=== PATIENT | male | born 1970 | race Two or more races ===

== ENCOUNTER 2023-02-18 18:31 | Inpatient (IN) | payer MEDICAID, OTHER ==
[~2023-02-18] VITALS: Ht 175.3 cm; Wt 70.3 kg
[2023-02-18] MEDS ORDERED: SODIUM CHLORIDE 0.9% 500 ML IV STA (18:36)
[2023-02-18] MEDS ORDERED: SODIUM CHLORIDE 0.9% 500 ML IV ONE (18:45)
[2023-02-18] MEDS ORDERED: cefTRIAXone 1GM/50ML D5W 50 ML IV ONE (19:00)
[2023-02-18 19:22] VITALS: PULSE 125; RESP 13; O2SAT 97
[2023-02-18 19:28] LABS: Hematocrit 29.2 % (41.0-53.0); Hemoglobin 9.3 g/dL (13.5-17.5); Mean Corpuscular Hemoglobin 27.6 pg (28.0-32.0); Mean Corpuscular Hgb Conc. 31.8 g/dL (32.0-36.0); Mean Corpuscular Volume 86.8 fL (80.0-100.0); Red Blood Cells 3.36 10^6/uL (4.5-5.90); White Blood Cell 17.5 10^3/uL (4.4-10.8)
[2023-02-18 19:41] LABS: Red Cell Distribution Width 20.2 % (11.8-14.3)
[2023-02-18 19:43] LABS: Basophils % (manual) 0 (0.0-2.0); Blast Cells 0; Eosinophils % (manual) 0 (0-7); Metamyelocytes % 0; Myelocytes % 0; Promyelocytes % 0; Reactive Lymphocytes 0
[2023-02-18] MEDS ORDERED: VANCOMYCIN 1GM/250ML 250 ML IV ONE (19:45)
[2023-02-18 19:48] LABS: Alanine Aminotransferase 76 U/L (7-40); Albumin 2.6 g/dL (3.2-4.8); Alkaline Phosphatase 298 U/L (46-116); Anion Gap 6 (5-15); Aspartate Aminotransferase 76 U/L (13-40); BUN/Creatinine Ratio 17.3 (10.0-20.0); Blood Urea Nitrogen 14 mg/dL (9-23); Calcium 8.1 mg/dL (8.7-10.4); Carbon Dioxide 23 mmol/L (20-30); Chloride 95 mmol/L (98-107); Potassium 5.4 mmol/L (3.5-5.1); Sodium 124 mmol/L (136-145); Total Protein 7.4 g/dL (5.7-8.2)
[2023-02-18 19:58] LABS: Glucose 476 mg/dL (74-106)
[2023-02-18 20:15] LABS: Urine Bacteria FEW /hpf (None Seen); Urine Blood 1+ /uL (Negative); Urine Clarity CLOUDY (Clear); Urine Color Yellow (Yellow); Urine Mucus FEW (None Seen); Urine Protein, UAD 2+ (Negative); Urine Specific Gravity 1.018 (1.001-1.035); Urine WBC 44 /hpf (0 - 3); Urine pH 7.5 (5.0-8.0)
[2023-02-18 20:24] LABS: Anisocytosis Slight; Band Neutrophils % (manual) 26; Lymphocytes % (manual) 7 (10.0-50.0); Monocytes % (manual) 6 (0-12); Platelet Estimate Adequate
[2023-02-18] MEDS ORDERED: SODIUM ZIRCONIUM CYCL 10 GM PAK PO ONE (21:30)
[2023-02-18] MEDS ORDERED: NITROGLYCERIN 0.4 MG SL TAB SL PRN (21:30)
[2023-02-18] MEDS ORDERED: ONDANSETRON HCL 4 MG/2 ML VIAL IV PRN (21:30)
[2023-02-18] MEDS ORDERED: MORPHINE SULFATE INJ 2 MG/ml SYRG IV PRN ×2 (21:30)
[2023-02-18] MEDS ORDERED: HYDROcodone-ACET 5/325MG TAB PO PRN (21:30)
[2023-02-18] MEDS ORDERED: ACETAMINOPHEN 325 MG TAB PO PRN (21:30)
[2023-02-18] MEDS ORDERED: ENO100SY SC (21:32)
[2023-02-18] MEDS ORDERED: TPN PER PHARMACY 0 ML IV SCH (22:15)
[2023-02-18] MEDS: SODIUM CHLORIDE 0.9% 1,000 ML IV SCH (22:27)
[2023-02-19] VITALS (8 sets, daily range): BP systolic 101–116; BP diastolic 59–71; PULSE 79–132; RESP 14–18; TEMP 97.9–98.9; O2SAT 95–98
[2023-02-19 06:07] LABS: Basophils # (auto) 0 10 ^3/uL (0-0.2); Basophils % (auto) 0.2 % (0.0-2.0); Eosinophils # (auto) 0 10 ^3/uL (0-0.8); Eosinophils % (auto) 0.4 % (0.0-7.0); Hematocrit 29.3 % (41.0-53.0); Hemoglobin 9.8 g/dL (13.5-17.5); Lymphocytes % (auto) 9.6 % (10.0-50.0); Mean Corpuscular Hemoglobin 28.3 pg (28.0-32.0); Mean Corpuscular Hgb Conc. 33.3 g/dL (32.0-36.0); Monocytes # (auto) 0.8 10 ^3/uL (0-1.3); Monocytes % (auto) 7.7 % (0.0-12.0); Neutrophils # (auto) 8.2 10 ^3/uL (1.6-8.6); Neutrophils % (auto) 82.1 % (37.0-80.0); Nucleated Red Blood Cells % 0.1 %; Red Blood Cells 3.45 10^6/uL (4.5-5.90)
[2023-02-19 06:09] LABS: Red Cell Distribution Width 20.3 % (11.8-14.3)
[2023-02-19 06:26] LABS: Alanine Aminotransferase 68 U/L (7-40); Albumin 2.8 g/dL (3.2-4.8); Alkaline Phosphatase 231 U/L (46-116); Anion Gap 3 (5-15); Aspartate Aminotransferase 78 U/L (13-40); BUN/Creatinine Ratio 18.3 (10.0-20.0); Blood Urea Nitrogen 11 mg/dL (9-23); Calcium 8.5 mg/dL (8.5-10.1); Carbon Dioxide 27 mmol/L (20-30); Chloride 99 mmol/L (98-107); Phosphorus 4.4 mg/dL (2.4-5.1); Potassium 4.3 mmol/L (3.5-5.1); Total Protein 7.9 g/dL (5.7-8.2); Triglycerides 77 mg/dL (< 150)
[2023-02-19 06:38] LABS: Glucose 106 mg/dL (74-106); Sodium 129 mmol/L (136-145)
[2023-02-19 07:14] LABS: Magnesium 1.9 mg/dL (1.6-2.6)
[2023-02-19] MEDS: cefTRIAXone 1GM/50ML D5W 50 ML IV SCH (09:11)
[2023-02-19] MEDS: SODIUM CHLORIDE 0.9% 1,000 ML IV SCH ×2 (09:11→20:27)
[2023-02-19] MEDS ORDERED: HYDROMORPHONE IV SCH ×7 (11:00→14:00)
[2023-02-19] MEDS ORDERED: SODIUM CHL 0.9% IV SCH ×7 (11:00→14:00)
[2023-02-19] MEDS ORDERED: TPN PER PHARMACY IV NR ×9 (20:00)
[2023-02-19] MEDS: ENOXAPARIN SOD 40 MG/0.4 ML SYRINGE SC SCH (21:46)
[2023-02-19] MEDS: ACCU-CHEK COMFORT CURVE STRIP VI SCH (23:56)
[2023-02-19] MEDS: InsuLIN REG 1unit/0.01ml Soln (100units/ml) SC SCH (23:56)
[2023-02-20] VITALS (7 sets, daily range): BP systolic 99–114; BP diastolic 58–67; PULSE 73–116; RESP 15–18; TEMP 97.9–98.1; O2SAT 95–99
[2023-02-20] MEDS ORDERED: DEXTROSE (50%) 50ML SYRG IV SCH
[2023-02-20] MEDS: InsuLIN REG 1unit/0.01ml Soln (100units/ml) SC SCH ×3 (06:00→17:43)
[2023-02-20] MEDS: ACCU-CHEK COMFORT CURVE STRIP VI SCH ×3 (06:24→17:43)
[2023-02-20] MEDS: SODIUM CHLORIDE 0.9% 1,000 ML IV SCH (06:24)
[2023-02-20 06:43] LABS: Basophils # (auto) 0 10 ^3/uL (0-0.2); Basophils % (auto) 0.1 % (0.0-2.0); Eosinophils # (auto) 0 10 ^3/uL (0-0.8); Eosinophils % (auto) 0.4 % (0.0-7.0); Hematocrit 27.6 % (41.0-53.0); Hemoglobin 9.1 g/dL (13.5-17.5); Lymphocytes # (auto) 1.6 10 ^3/uL (0.4-5.4); Lymphocytes % (auto) 13.1 % (10.0-50.0); Mean Corpuscular Hgb Conc. 32.8 g/dL (32.0-36.0); Mean Corpuscular Volume 85.4 fL (80.0-100.0); Monocytes # (auto) 1.2 10 ^3/uL (0-1.3); Monocytes % (auto) 9.8 % (0.0-12.0); Neutrophils # (auto) 9.6 10 ^3/uL (1.6-8.6); Neutrophils % (auto) 76.6 % (37.0-80.0); Red Blood Cells 3.23 10^6/uL (4.5-5.90); White Blood Cell 12.6 10^3/uL (4.4-10.8)
[2023-02-20 06:59] LABS: Chloride 97 mmol/L (98-107); Potassium 4.1 mmol/L (3.5-5.1); Sodium 125 mmol/L (136-145)
[2023-02-20 07:05] LABS: BUN/Creatinine Ratio 11.9 (10.0-20.0); Blood Urea Nitrogen 7 mg/dL (9-23); Glucose 114 mg/dL (74-106)
[2023-02-20 07:06] LABS: Magnesium 1.9 mg/dL (1.6-2.6)
[2023-02-20 07:07] LABS: Phosphorus 2.8 mg/dL (2.4-5.1)
[2023-02-20 07:25] LABS: Anion Gap 3 (5-15); Carbon Dioxide 25 mmol/L (20-30)
[2023-02-20] MEDS: ENOXAPARIN SOD 40 MG/0.4 ML SYRINGE SC SCH (08:55)
[2023-02-20] MEDS: cefTRIAXone 1GM/50ML D5W 50 ML IV SCH (09:17)
[2023-02-20] MEDS ORDERED: ENOXAPARIN SOD 40 MG/0.4 ML SYRINGE SC SCH (10:00)
[2023-02-20] MEDS ORDERED: VANCOMYCIN PER PHARMACY 0 MG IV SCH (10:30)
[2023-02-20] MEDS ORDERED: VANCOMYCIN 1GM/250ML 250 ML IV ONE (10:45)
[2023-02-20] MEDS ORDERED: ENOXAPARIN SOD 30 MG/0.3 ML SYRINGE SC ONE (10:45)
[2023-02-20 10:46] LABS: Albumin 2.5 g/dL (3.2-4.8); Bilirubin, Direct 0.6 mg/dL (<0.3); Bilirubin, Total 0.9 mg/dL (0.2-1.0); Total Protein 6.7 g/dL (5.7-8.2)
[2023-02-20] MEDS ORDERED: TPN PER PHARMACY IV NR ×10 (20:00)
[2023-02-20] MEDS: VANCOMYCIN 1GM/250ML 250 ML IV SCH (20:38)
[2023-02-20] MEDS: ENOXAPARIN SOD 80 MG/0.8ML SYRINGE SC SCH (21:05)
[2023-02-21] MEDS: ACCU-CHEK COMFORT CURVE STRIP VI SCH ×3 (00:16→11:42)
[2023-02-21] MEDS: VANCOMYCIN 1GM/250ML 250 ML IV SCH ×2 (04:53→16:00)
[2023-02-21] MEDS: InsuLIN REG 1unit/0.01ml Soln (100units/ml) SC SCH ×3 (04:58→11:42)
[2023-02-21 05:00] VITALS: BP 97/59; PULSE 65; RESP 16; TEMP 98; O2SAT 98
[2023-02-21 05:56] LABS: Alanine Aminotransferase 41 U/L (7-40); Albumin 2.6 g/dL (3.2-4.8); Alkaline Phosphatase 200 U/L (46-116); Anion Gap 5 (5-15); Aspartate Aminotransferase 62 U/L (13-40); Blood Urea Nitrogen 8 mg/dL (9-23); Calcium 7.7 mg/dL (8.7-10.4); Carbon Dioxide 22 mmol/L (20-30); Chloride 96 mmol/L (98-107); Glucose 103 mg/dL (74-106); Magnesium 1.7 mg/dL (1.6-2.6); Potassium 3.5 mmol/L (3.5-5.1); Sodium 123 mmol/L (136-145)
[2023-02-21 05:57] LABS: Basophils # (auto) 0 10 ^3/uL (0-0.2); Eosinophils # (auto) 0 10 ^3/uL (0-0.8); Hemoglobin 8.2 g/dL (13.5-17.5); Neutrophils % (auto) 80.8 % (37.0-80.0); Phosphorus 2.6 mg/dL (2.4-5.1); Total Protein 7.1 g/dL (5.7-8.2)
[2023-02-21 06:00] LABS: Eosinophils % (auto) 0.4 % (0.0-7.0); Hematocrit 24.8 % (41.0-53.0); Lymphocytes # (auto) 1.3 10 ^3/uL (0.4-5.4); Lymphocytes % (auto) 10.4 % (10.0-50.0); Mean Corpuscular Hemoglobin 28.2 pg (28.0-32.0); Mean Corpuscular Volume 85.4 fL (80.0-100.0); Monocytes # (auto) 1.1 10 ^3/uL (0-1.3); Monocytes % (auto) 8.4 % (0.0-12.0); Neutrophils # (auto) 10.5 10 ^3/uL (1.6-8.6); Nucleated Red Blood Cells % 0.1 %; Red Cell Distribution Width 19.8 % (11.8-14.3)
[2023-02-21 08:00] VITALS: BP 112/65; PULSE 102; PULSE 76; PULSE 99; RESP 14; RESP 17; TEMP 99; O2SAT 94; O2SAT 97
[2023-02-21] MEDS ORDERED: LINE1TAB10 PO (09:37)
[2023-02-21 12:00] VITALS: BP 105/62; PULSE 75; RESP 16; TEMP 98.8; O2SAT 98
[2023-02-21] MEDS: cefTRIAXone 1GM/50ML D5W 50 ML IV SCH (12:50)
[2023-02-21] MEDS: ENOXAPARIN SOD 80 MG/0.8ML SYRINGE SC SCH (12:50)
[2023-02-21 16:00] VITALS: BP 106/64; PULSE 71; RESP 14; TEMP 98.3; O2SAT 98
[2023-02-21] MEDS ORDERED: TPN PER PHARMACY IV NR ×12 (20:00)
== END 2023-02-21 18:30 | disposition home health service (06) | DRG 720 ==
LOC: EDBD 18:31 → ER 18:31 → TELE 21:26 → TELE-WESTW 02-19 04:15
PROVIDERS: ADMIT Internal Medicine Pulmonary Disease; ATTEND Student in an Organized Health Care Education/Training Program
PROC: 0DH63UZ Insertion of Feeding Device into Stomach, Percutaneous Approach (ICD-10-PCS; principal; 2023-02-21)
PROC: 3E0G76Z Introduction of Nutritional Substance into Upper GI, Via Natural or Artificial Opening (ICD-10-PCS; 2023-02-21)
DX: A41.2 Sepsis due to unspecified staphylococcus (principal); E43 Unspecified severe protein-calorie malnutrition; I82.411 Acute embolism and thrombosis of right femoral vein; C20 Malignant neoplasm of rectum; E87.1 Hypo-osmolality and hyponatremia; N39.0 Urinary tract infection, site not specified; Z68.22 Body mass index [BMI] 22.0-22.9, adult; Z85.038 Personal history of other malignant neoplasm of large intestine; Z92.21 Personal history of antineoplastic chemotherapy; Z93.3 Colostomy status; Z93.6 Other artificial openings of urinary tract status
CPT/HCPCS: 36415; 71045; 80048; 80053; 80076; 80202; 81001; 82040; 82962; 83036; 83605; 83735; 84100; 84478; 85007; 85025; 85027; 87040; 87077; 87086; 87186; 93005; 93971; G0378; J0696; J7131

== ENCOUNTER 2023-03-11 17:04 | Inpatient (IN) | payer MEDICAID ==
[~2023-03-11] VITALS: Ht 182.9 cm; Wt 61.1 kg
[~2023-03-11 17:04] MED LIST: ENO100SY SC; LINE1TAB10 PO
[2023-03-11 17:16] VITALS: PULSE 101; RESP 16; O2SAT 96
[2023-03-11 18:05] LABS: Eosinophils # (auto) 0 10 ^3/uL (0-0.8); Eosinophils % (auto) 0.1 % (0.0-7.0); Neutrophils % (auto) 91.4 % (37.0-80.0)
[2023-03-11 18:07] LABS: Basophils # (auto) 0.2 10 ^3/uL (0-0.2); Lymphocytes # (auto) 0.5 10 ^3/uL (0.4-5.4); Lymphocytes % (auto) 3.1 % (10.0-50.0); Mean Corpuscular Hemoglobin 28.9 pg (28.0-32.0); Mean Corpuscular Volume 87.5 fL (80.0-100.0); Monocytes # (auto) 0.7 10 ^3/uL (0-1.3); Monocytes % (auto) 4.4 % (0.0-12.0); Neutrophils # (auto) 15.1 10 ^3/uL (1.6-8.6); Red Cell Distribution Width 19.2 % (11.8-14.3); White Blood Cell 16.5 10^3/uL (4.4-10.8)
[2023-03-11 18:20] LABS: Alanine Aminotransferase 26 U/L (7-40); Albumin 2.6 g/dL (3.2-4.8); Alkaline Phosphatase 261 U/L (46-116); Anion Gap 8 (5-15); Aspartate Aminotransferase 51 U/L (13-40); BUN/Creatinine Ratio 21.4 (10.0-20.0); Blood Urea Nitrogen 9 mg/dL (9-23); Calcium 7.7 mg/dL (8.7-10.4); Carbon Dioxide 21 mmol/L (20-30); Chloride 100 mmol/L (98-107); Glucose 105 mg/dL (74-106); Potassium 3.7 mmol/L (3.5-5.1); Sodium 129 mmol/L (136-145)
[2023-03-11 18:21] LABS: Bilirubin, Total 0.5 mg/dL (0.2-1.0); Lactic Acid w/Reflex 2.2 mmol/L (0.4-2.0); Total Protein 6.6 g/dL (5.7-8.2)
[2023-03-11 18:26] LABS: Hemoglobin 6.9 g/dL (13.5-17.5)
[2023-03-11] MEDS ORDERED: SODIUM CHLORIDE 0.9% 1,000 ML IV ONE (18:45)
[2023-03-11] MEDS ORDERED: SODIUM CHLORIDE 0.9% 1,350 ML IV ONE (19:00)
[2023-03-11 19:30] VITALS: PULSE 92; RESP 12; O2SAT 96
[2023-03-11] MEDS ORDERED: VANCOMYCIN PER PHARMACY 0 MG IV SCH ×2 (19:45→20:30)
[2023-03-11] MEDS ORDERED: VANCOMYCIN 1GM/250ML 250 ML IV SCH (20:00)
[2023-03-11 20:07] LABS: Basophils # (auto) 0.1 10 ^3/uL (0-0.2); Eosinophils # (auto) 0 10 ^3/uL (0-0.8); Eosinophils % (auto) 0.1 % (0.0-7.0); Hemoglobin 7.2 g/dL (13.5-17.5); Lymphocytes # (auto) 0.7 10 ^3/uL (0.4-5.4); Monocytes # (auto) 0.8 10 ^3/uL (0-1.3)
[2023-03-11 20:08] LABS: Basophils % (auto) 0.6 % (0.0-2.0); Hematocrit 22.2 % (41.0-53.0); Lymphocytes % (auto) 3.9 % (10.0-50.0); Mean Corpuscular Hgb Conc. 32.3 g/dL (32.0-36.0); Mean Corpuscular Volume 86.9 fL (80.0-100.0); Monocytes % (auto) 4.7 % (0.0-12.0); Neutrophils # (auto) 15.4 10 ^3/uL (1.6-8.6); Neutrophils % (auto) 90.7 % (37.0-80.0); Red Blood Cells 2.56 10^6/uL (4.5-5.90); Red Cell Distribution Width 18.6 % (11.8-14.3); White Blood Cell 16.9 10^3/uL (4.4-10.8)
[2023-03-11 20:18] LABS: Alanine Aminotransferase 37 U/L (7-40); Albumin 2.6 g/dL (3.2-4.8); Alkaline Phosphatase 253 U/L (46-116); Anion Gap 6 (5-15); Aspartate Aminotransferase 64 U/L (13-40); BUN/Creatinine Ratio 26.2 (10.0-20.0); Bilirubin, Total 0.5 mg/dL (0.2-1.0); Blood Urea Nitrogen 11 mg/dL (9-23); Calcium 7.8 mg/dL (8.5-10.1); Carbon Dioxide 22 mmol/L (20-30); Chloride 101 mmol/L (98-107); Glucose 112 mg/dL (74-106); Sodium 129 mmol/L (136-145); Total Protein 6.3 g/dL (5.7-8.2)
[2023-03-11] MEDS ORDERED: MORPHINE SULFATE INJ 2 MG/ml SYRG IV PRN (20:30)
[2023-03-11] MEDS ORDERED: ACETAMINOPHEN 325 MG TAB PO PRN (20:30)
[2023-03-11] MEDS ORDERED: TEMAZEPAM 15 MG CAP PO PRN (20:30)
[2023-03-11] MEDS ORDERED: ONDANSETRON HCL 4 MG/2 ML VIAL IV PRN (20:30)
[2023-03-11] MEDS ORDERED: NITROGLYCERIN 0.4 MG SL TAB SL PRN (20:30)
[2023-03-11 20:37] LABS: INR 1.17 (0.9-1.15); Partial Thromboplastin Time 32.3 SEC (24.5-34.5); Prothrombin Time 12.2 sec (9.3-11.8)
[2023-03-11] MEDS ORDERED: SODIUM CHLORIDE 0.9% 1,000 ML IV SCH (21:00)
[2023-03-11] MEDS ORDERED: PIPERACILLIN-TAZO 4.5GM 100 ML IV SCH (22:00)
[2023-03-11] MEDS: PIPERACILLIN-TAZOB 3.375GM 100 ML IV SCH (23:21)
[2023-03-12] VITALS (76 sets, daily range): BP systolic 81–103; BP diastolic 42–66; PULSE 74–106; RESP 8–20; TEMP 97.6–100.1; O2SAT 93–100
[2023-03-12] MEDS: PIPERACILLIN-TAZOB 3.375GM 100 ML IV SCH (06:18)
[2023-03-12] MEDS: VANCOMYCIN 1GM/250ML 250 ML IV SCH ×2 (08:48→20:20)
[2023-03-12 08:52] LABS: Basophils # (auto) 0.1 10 ^3/uL (0-0.2); Eosinophils # (auto) 0 10 ^3/uL (0-0.8); Eosinophils % (auto) 0.1 % (0.0-7.0); Hemoglobin 8.3 g/dL (13.5-17.5); Mean Corpuscular Volume 87.1 fL (80.0-100.0); Neutrophils # (auto) 13.4 10 ^3/uL (1.6-8.6)
[2023-03-12 08:53] LABS: Basophils % (auto) 0.4 % (0.0-2.0); Hematocrit 25.3 % (41.0-53.0); Lymphocytes # (auto) 0.6 10 ^3/uL (0.4-5.4); Mean Corpuscular Hemoglobin 28.6 pg (28.0-32.0); Mean Corpuscular Hgb Conc. 32.8 g/dL (32.0-36.0); Monocytes # (auto) 0.6 10 ^3/uL (0-1.3); Monocytes % (auto) 4.2 % (0.0-12.0); Neutrophils % (auto) 91.3 % (37.0-80.0); Red Cell Distribution Width 18.3 % (11.8-14.3); White Blood Cell 14.7 10^3/uL (4.4-10.8)
[2023-03-12 09:13] LABS: Alanine Aminotransferase 27 U/L (7-40); Albumin 2.7 g/dL (3.2-4.8); Alkaline Phosphatase 212 U/L (46-116); Anion Gap 5 (5-15); Aspartate Aminotransferase 53 U/L (13-40); Blood Urea Nitrogen 6 mg/dL (9-23); Calcium 7.9 mg/dL (8.5-10.1); Carbon Dioxide 23 mmol/L (20-30); Chloride 100 mmol/L (98-107); Glucose 92 mg/dL (74-106); Potassium 3.6 mmol/L (3.5-5.1); Sodium 128 mmol/L (136-145)
[2023-03-12 09:14] LABS: Bilirubin, Total 0.8 mg/dL (0.2-1.0); Total Protein 6.8 g/dL (5.7-8.2)
[2023-03-12] MEDS ORDERED: ENOXAPARIN SOD 40 MG/0.4 ML SYRINGE SC SCH (10:00)
[2023-03-12] MEDS ORDERED: SODIUM CHLORIDE 0.9% 500 ML IV ONE (10:30)
[2023-03-12] MEDS ORDERED: CLINIMIX PER PHARMACY 0 ML IV SCH (11:00)
[2023-03-12] MEDS ORDERED: TPN PER PHARMACY 0 ML IV SCH (11:00)
[2023-03-12] MEDS: SODIUM CHLORIDE 0.9% 1,000 ML IV SCH ×2 (11:54→17:09)
[2023-03-12] MEDS ORDERED: AMINO ACID INFUSION IN D10W 1,000 ML IV NR (12:15)
[2023-03-12 12:16] LABS: Magnesium 1.7 mg/dL (1.6-2.6)
[2023-03-12 12:18] LABS: Phosphorus 3.2 mg/dL (2.4-5.1)
[2023-03-12 12:45] LABS: Urine Bacteria FEW /hpf (None Seen); Urine Blood TRACE /uL (Negative); Urine Clarity Clear (Clear); Urine Color Yellow (Yellow); Urine Mucus FEW (None Seen); Urine Protein, UAD TRACE (Negative); Urine Specific Gravity 1.013 (1.001-1.035); Urine WBC 1 /hpf (0 - 3); Urine pH 6.5 (5.0-8.0)
[2023-03-12] MEDS ORDERED: DEXTROSE (50%) 50ML SYRG IV SCH (12:45)
[2023-03-12 12:46] LABS: Urine Bacteria FEW /hpf (None Seen); Urine Blood TRACE /uL (Negative); Urine Clarity Clear (Clear); Urine Color Yellow (Yellow); Urine Mucus FEW (None Seen); Urine Protein, UAD TRACE (Negative); Urine Specific Gravity 1.013 (1.001-1.035); Urine WBC 1 /hpf (0 - 3); Urine pH 6.5 (5.0-8.0)
[2023-03-12] MEDS: MEROPENEM 1GM IVPB 100 ML IV SCH ×2 (13:59→23:08)
[2023-03-12] MEDS: ACCU-CHEK COMFORT CURVE STRIP VI SCH (17:24)
[2023-03-12] MEDS: InsuLIN REG 1unit/0.01ml Soln (100units/ml) SC SCH (17:25)
[2023-03-12] MEDS: MIDODRINE HCL 10 MG TAB PO SCH (17:35)
[2023-03-12] MEDS ORDERED: TPN PER PHARMACY IV NR ×11 (20:00)
[2023-03-12] MEDS: ENOXAPARIN SOD 100 MG/1 ML SYRINGE SC SCH (23:08)
[2023-03-13] VITALS: PULSE 86
[2023-03-13] MEDS: ACCU-CHEK COMFORT CURVE STRIP VI SCH ×4 (00:43→16:20)
[2023-03-13 04:00] VITALS: PULSE 77
[2023-03-13] MEDS: InsuLIN REG 1unit/0.01ml Soln (100units/ml) SC SCH ×4 (06:00→17:29)
[2023-03-13] MEDS: MEROPENEM 1GM IVPB 100 ML IV SCH ×3 (06:24→21:58)
[2023-03-13] MEDS: MIDODRINE HCL 10 MG TAB PO SCH ×3 (06:24→17:25)
[2023-03-13] MEDS: SODIUM CHLORIDE 0.9% 1,000 ML IV SCH ×3 (06:45→23:42)
[2023-03-13 07:34] LABS: Basophils # (auto) 0 10 ^3/uL (0-0.2); Basophils % (auto) 0.5 % (0.0-2.0); Eosinophils # (auto) 0.1 10 ^3/uL (0-0.8); Hematocrit 27.6 % (41.0-53.0); Lymphocytes % (auto) 12.1 % (10.0-50.0); Mean Corpuscular Hemoglobin 28.2 pg (28.0-32.0); Mean Corpuscular Hgb Conc. 32.5 g/dL (32.0-36.0); Mean Corpuscular Volume 86.6 fL (80.0-100.0); Monocytes # (auto) 0.8 10 ^3/uL (0-1.3); Monocytes % (auto) 9.4 % (0.0-12.0); Neutrophils # (auto) 6.5 10 ^3/uL (1.6-8.6); Nucleated Red Blood Cells % 0.1 %; Red Blood Cells 3.18 10^6/uL (4.5-5.90); Red Cell Distribution Width 17.8 % (11.8-14.3); White Blood Cell 8.5 10^3/uL (4.4-10.8)
[2023-03-13 07:49] LABS: Alanine Aminotransferase 28 U/L (7-40); Albumin 2.6 g/dL (3.2-4.8); Alkaline Phosphatase 185 U/L (46-116); Anion Gap 5 (5-15); Aspartate Aminotransferase 44 U/L (13-40); BUN/Creatinine Ratio 17.1 (10.0-20.0); Blood Urea Nitrogen 7 mg/dL (9-23); Carbon Dioxide 24 mmol/L (20-30); Chloride 103 mmol/L (98-107); Glucose 111 mg/dL (74-106); Potassium 3.7 mmol/L (3.5-5.1); Sodium 132 mmol/L (136-145); Triglycerides 177 mg/dL (< 150)
[2023-03-13 07:50] LABS: Bilirubin, Total 0.6 mg/dL (0.2-1.0); Phosphorus 3.6 mg/dL (2.4-5.1); Total Protein 6.4 g/dL (5.7-8.2)
[2023-03-13 08:00] VITALS: BP 97/57; PULSE 70; PULSE 73; PULSE 75; RESP 11; RESP 8; TEMP 97.7; O2SAT 96; O2SAT 97
[2023-03-13] MEDS: VANCOMYCIN 1GM/250ML 250 ML IV SCH ×2 (08:17→16:20)
[2023-03-13] MEDS: ENOXAPARIN SOD 100 MG/1 ML SYRINGE SC SCH (08:17)
[2023-03-13 09:32] LABS: Magnesium 1.8 mg/dL (1.6-2.6)
[2023-03-13 12:00] VITALS: BP 94/60; PULSE 73; PULSE 78; RESP 12; TEMP 97.7; O2SAT 97
[2023-03-13 16:00] VITALS: BP 99/61; PULSE 72; PULSE 76; RESP 15; TEMP 98.1; O2SAT 97
[2023-03-13 20:00] VITALS: BP 99/57; PULSE 78; PULSE 83; RESP 10; TEMP 98.3; O2SAT 96
[2023-03-13] MEDS: TPN PER PHARMACY IV NR ×10 (20:29)
[2023-03-13] MEDS: ENOXAPARIN SOD 80 MG/0.8ML SYRINGE SC SCH (21:58)
[2023-03-14] VITALS (7 sets, daily range): BP systolic 112–136; BP diastolic 61–76; PULSE 60–91; RESP 8–19; TEMP 97.8–98.4; O2SAT 95–98
[2023-03-14] MEDS: VANCOMYCIN 1GM/250ML 250 ML IV SCH ×3 (00:17→18:32)
[2023-03-14] MEDS: ACCU-CHEK COMFORT CURVE STRIP VI SCH ×4 (00:18→18:32)
[2023-03-14 05:22] LABS: Basophils # (auto) 0.1 10 ^3/uL (0-0.2); Basophils % (auto) 1.2 % (0.0-2.0); Eosinophils # (auto) 0.1 10 ^3/uL (0-0.8); Eosinophils % (auto) 1.2 % (0.0-7.0); Hematocrit 26.3 % (41.0-53.0); Hemoglobin 8.9 g/dL (13.5-17.5); Lymphocytes # (auto) 1.4 10 ^3/uL (0.4-5.4); Lymphocytes % (auto) 14.2 % (10.0-50.0); Mean Corpuscular Hgb Conc. 33.8 g/dL (32.0-36.0); Mean Corpuscular Volume 85.7 fL (80.0-100.0); Monocytes # (auto) 0.7 10 ^3/uL (0-1.3); Monocytes % (auto) 7.5 % (0.0-12.0); Neutrophils # (auto) 7.5 10 ^3/uL (1.6-8.6); Neutrophils % (auto) 75.9 % (37.0-80.0); Red Blood Cells 3.07 10^6/uL (4.5-5.90); Red Cell Distribution Width 17.4 % (11.8-14.3); White Blood Cell 9.9 10^3/uL (4.4-10.8)
[2023-03-14 05:33] LABS: Alanine Aminotransferase 20 U/L (7-40); Albumin 2.9 g/dL (3.2-4.8); Alkaline Phosphatase 174 U/L (46-116); Anion Gap 7 (5-15); Aspartate Aminotransferase 33 U/L (13-40); Calcium 8.4 mg/dL (8.7-10.4); Carbon Dioxide 24 mmol/L (20-30); Chloride 99 mmol/L (98-107); Glucose 108 mg/dL (74-106); Magnesium 1.8 mg/dL (1.6-2.6); Potassium 3.8 mmol/L (3.5-5.1); Sodium 130 mmol/L (136-145)
[2023-03-14 05:34] LABS: Bilirubin, Total 0.5 mg/dL (0.2-1.0); Phosphorus 3.2 mg/dL (2.4-5.1); Total Protein 7.1 g/dL (5.7-8.2)
[2023-03-14 05:42] LABS: BUN/Creatinine Ratio 13.5 (10.0-20.0); Blood Urea Nitrogen < 5 mg/dL (9-23)
[2023-03-14] MEDS: InsuLIN REG 1unit/0.01ml Soln (100units/ml) SC SCH ×4 (06:00→18:00)
[2023-03-14] MEDS: MEROPENEM 1GM IVPB 100 ML IV SCH (06:37)
[2023-03-14] MEDS: MIDODRINE HCL 10 MG TAB PO SCH ×3 (06:37→18:32)
[2023-03-14] MEDS: ENOXAPARIN SOD 80 MG/0.8ML SYRINGE SC SCH ×2 (07:45→23:09)
[2023-03-14] MEDS: TPN PER PHARMACY IV NR ×10 (19:56)
[2023-03-14] MEDS ORDERED: TPN PER PHARMACY IV NR ×10 (20:00)
[2023-03-15] VITALS (7 sets, daily range): BP systolic 96–117; BP diastolic 65–73; PULSE 78–85; RESP 10–19; TEMP 97.6–98.1; O2SAT 96–98
[2023-03-15] MEDS: VANCOMYCIN 1GM/250ML 250 ML IV SCH ×3 (02:28→18:38)
[2023-03-15] MEDS: HYDROcodone-ACET 5/325MG TAB PO PRN (02:31)
[2023-03-15 05:50] LABS: Basophils # (auto) 0.1 10 ^3/uL (0-0.2); Basophils % (auto) 0.8 % (0.0-2.0); Eosinophils # (auto) 0.1 10 ^3/uL (0-0.8); Hematocrit 27.1 % (41.0-53.0); Hemoglobin 8.8 g/dL (13.5-17.5); Lymphocytes # (auto) 1.4 10 ^3/uL (0.4-5.4); Lymphocytes % (auto) 12.4 % (10.0-50.0); Mean Corpuscular Hemoglobin 28.1 pg (28.0-32.0); Mean Corpuscular Hgb Conc. 32.5 g/dL (32.0-36.0); Mean Corpuscular Volume 86.3 fL (80.0-100.0); Monocytes # (auto) 0.7 10 ^3/uL (0-1.3); Monocytes % (auto) 6.5 % (0.0-12.0); Neutrophils # (auto) 8.9 10 ^3/uL (1.6-8.6); Neutrophils % (auto) 79.3 % (37.0-80.0); Nucleated Red Blood Cells % 0.1 %; Red Blood Cells 3.14 10^6/uL (4.5-5.90); Red Cell Distribution Width 17.8 % (11.8-14.3); White Blood Cell 11.2 10^3/uL (4.4-10.8)
[2023-03-15] MEDS: InsuLIN REG 1unit/0.01ml Soln (100units/ml) SC SCH ×4 (06:00→18:00)
[2023-03-15] MEDS: ACCU-CHEK COMFORT CURVE STRIP VI SCH ×4 (06:00→18:38)
[2023-03-15 06:16] LABS: Alanine Aminotransferase 17 U/L (7-40); Alkaline Phosphatase 161 U/L (46-116); Anion Gap 7 (5-15); Aspartate Aminotransferase 31 U/L (13-40); Calcium 8.6 mg/dL (8.7-10.4); Carbon Dioxide 26 mmol/L (20-30); Chloride 96 mmol/L (98-107); Glucose 104 mg/dL (74-106); Magnesium 1.8 mg/dL (1.6-2.6); Sodium 129 mmol/L (136-145)
[2023-03-15 06:17] LABS: BUN/Creatinine Ratio 13.5 (10.0-20.0); Bilirubin, Total 0.5 mg/dL (0.2-1.0); Blood Urea Nitrogen < 5 mg/dL (9-23); Phosphorus 3.8 mg/dL (2.4-5.1); Total Protein 7.4 g/dL (5.7-8.2)
[2023-03-15] MEDS: MIDODRINE HCL 10 MG TAB PO SCH ×3 (06:31→18:38)
[2023-03-15] MEDS: SODIUM CHLORIDE 0.9% 1,000 ML IV SCH (06:31)
[2023-03-15] MEDS: ENOXAPARIN SOD 80 MG/0.8ML SYRINGE SC SCH ×2 (08:47→21:08)
[2023-03-15] MEDS ORDERED: TPN PER PHARMACY IV NR ×10 (20:00)
[2023-03-16] VITALS (7 sets, daily range): BP systolic 93–125; BP diastolic 58–71; PULSE 78–83; RESP 12–18; TEMP 98–98.5; O2SAT 96–98
[2023-03-16] MEDS: SODIUM CHLORIDE 0.9% 1,000 ML IV SCH ×3 (02:18→21:23)
[2023-03-16] MEDS: VANCOMYCIN 1GM/250ML 250 ML IV SCH ×3 (02:19→17:24)
[2023-03-16] MEDS: HYDROcodone-ACET 5/325MG TAB PO PRN (04:24)
[2023-03-16] MEDS: ACCU-CHEK COMFORT CURVE STRIP VI SCH ×5 (06:00→23:31)
[2023-03-16] MEDS: MIDODRINE HCL 10 MG TAB PO SCH ×3 (06:00→17:24)
[2023-03-16] MEDS: InsuLIN REG 1unit/0.01ml Soln (100units/ml) SC SCH ×5 (06:00→23:32)
[2023-03-16 07:01] LABS: Alanine Aminotransferase 15 U/L (7-40); Albumin 3.2 g/dL (3.2-4.8); Alkaline Phosphatase 154 U/L (46-116); Anion Gap 6 (5-15); Aspartate Aminotransferase 34 U/L (13-40); Blood Urea Nitrogen 6 mg/dL (9-23); Calcium 8.9 mg/dL (8.5-10.1); Carbon Dioxide 27 mmol/L (20-30); Chloride 96 mmol/L (98-107); Glucose 100 mg/dL (74-106); Potassium 4.1 mmol/L (3.5-5.1); Sodium 129 mmol/L (136-145)
[2023-03-16 07:02] LABS: Bilirubin, Total 0.5 mg/dL (0.2-1.0); Phosphorus 3.7 mg/dL (2.4-5.1); Total Protein 7.7 g/dL (5.7-8.2)
[2023-03-16 07:28] LABS: Magnesium 1.8 mg/dL (1.6-2.6)
[2023-03-16] MEDS ORDERED: SODIUM CHLORIDE 0.9% 250 ML IV ONE (10:15)
[2023-03-16] MEDS: ENOXAPARIN SOD 80 MG/0.8ML SYRINGE SC SCH ×2 (10:28→21:23)
[2023-03-16] MEDS: TPN PER PHARMACY IV NR ×20 (16:46→20:21)
[2023-03-17] VITALS (7 sets, daily range): BP systolic 101–126; BP diastolic 55–69; PULSE 73–95; RESP 10–20; TEMP 98.4–99.7; O2SAT 96–98
[2023-03-17] MEDS: VANCOMYCIN 1GM/250ML 250 ML IV SCH ×2 (01:11→08:42)
[2023-03-17] MEDS: ACCU-CHEK COMFORT CURVE STRIP VI SCH ×4 (05:43→23:58)
[2023-03-17] MEDS: MIDODRINE HCL 10 MG TAB PO SCH ×3 (05:43→17:14)
[2023-03-17] MEDS: InsuLIN REG 1unit/0.01ml Soln (100units/ml) SC SCH ×4 (05:44→23:58)
[2023-03-17 06:21] LABS: Basophils # (auto) 0.1 10 ^3/uL (0-0.2); Basophils % (auto) 0.4 % (0.0-2.0); Eosinophils # (auto) 0.2 10 ^3/uL (0-0.8); Hematocrit 27.8 % (41.0-53.0); Hemoglobin 8.9 g/dL (13.5-17.5); Mean Corpuscular Hgb Conc. 31.9 g/dL (32.0-36.0); Nucleated Red Blood Cells % 0.1 %; White Blood Cell 12.1 10^3/uL (4.4-10.8)
[2023-03-17 06:23] LABS: Eosinophils % (auto) 1.4 % (0.0-7.0); Lymphocytes # (auto) 1.1 10 ^3/uL (0.4-5.4); Lymphocytes % (auto) 8.9 % (10.0-50.0); Mean Corpuscular Hemoglobin 27.6 pg (28.0-32.0); Mean Corpuscular Volume 86.6 fL (80.0-100.0); Monocytes # (auto) 0.7 10 ^3/uL (0-1.3); Monocytes % (auto) 6.1 % (0.0-12.0); Neutrophils % (auto) 83.2 % (37.0-80.0); Red Blood Cells 3.21 10^6/uL (4.5-5.90); Red Cell Distribution Width 18.2 % (11.8-14.3)
[2023-03-17 06:37] LABS: Alanine Aminotransferase 14 U/L (7-40); Alkaline Phosphatase 176 U/L (46-116); Anion Gap 8 (5-15); Aspartate Aminotransferase 36 U/L (13-40); BUN/Creatinine Ratio 18.4 (10.0-20.0); Bilirubin, Total 0.6 mg/dL (0.2-1.0); Blood Urea Nitrogen 7 mg/dL (9-23); Calcium 8.6 mg/dL (8.7-10.4); Carbon Dioxide 24 mmol/L (20-30); Chloride 97 mmol/L (98-107); Glucose 107 mg/dL (74-106); Magnesium 1.9 mg/dL (1.6-2.6); Phosphorus 3.6 mg/dL (2.4-5.1); Potassium 3.7 mmol/L (3.5-5.1); Sodium 129 mmol/L (136-145); Total Protein 7.7 g/dL (5.7-8.2)
[2023-03-17] MEDS: SODIUM CHLORIDE 0.9% 1,000 ML IV SCH ×3 (08:30→21:38)
[2023-03-17] MEDS: ENOXAPARIN SOD 80 MG/0.8ML SYRINGE SC SCH ×2 (08:42→21:39)
[2023-03-17] MEDS: FLUCONAZOLE 200MG/100ML 100 ML IV SCH (10:19)
[2023-03-17 12:37] LABS: INR 1.09 (0.9-1.15); Partial Thromboplastin Time 36.5 SEC (24.5-34.5); Prothrombin Time 11.4 sec (9.3-11.8)
[2023-03-17] MEDS ORDERED: LIDOCAINE 1% (LOCAL ANESTH.) PF 5ml SDV ID ONE (14:30)
[2023-03-17] MEDS: CEFTRIAXONE SODIUM 2 GM in D5W 5% 100 ML IV SCH (17:00)
[2023-03-17] MEDS ORDERED: TPN PER PHARMACY IV NR ×10 (20:00)
[2023-03-17] MEDS: SODIUM CHLOR 0.9% PF (SALINE LOCK) 10ML VIAL/SYR IV SCH (21:38)
[2023-03-18] VITALS (8 sets, daily range): BP systolic 99–120; BP diastolic 55–71; PULSE 72–83; RESP 10–18; TEMP 98–98.5; O2SAT 96–98
[2023-03-18] MEDS: HYDROcodone-ACET 5/325MG TAB PO PRN (01:26)
[2023-03-18] MEDS: InsuLIN REG 1unit/0.01ml Soln (100units/ml) SC SCH ×3 (06:00→16:44)
[2023-03-18] MEDS: ACCU-CHEK COMFORT CURVE STRIP VI SCH ×3 (06:11→16:44)
[2023-03-18] MEDS: MIDODRINE HCL 10 MG TAB PO SCH ×3 (06:12→16:57)
[2023-03-18 06:20] LABS: Alanine Aminotransferase 17 U/L (7-40); Alkaline Phosphatase 224 U/L (46-116); Anion Gap 8 (5-15); BUN/Creatinine Ratio 17.5 (10.0-20.0); Blood Urea Nitrogen 7 mg/dL (9-23); Calcium 8.5 mg/dL (8.7-10.4); Carbon Dioxide 24 mmol/L (20-30); Chloride 97 mmol/L (98-107); Glucose 103 mg/dL (74-106); Potassium 3.9 mmol/L (3.5-5.1); Sodium 129 mmol/L (136-145)
[2023-03-18 06:21] LABS: Aspartate Aminotransferase 46 U/L (13-40)
[2023-03-18 06:22] LABS: Albumin 3.1 g/dL (3.2-4.8)
[2023-03-18 06:23] LABS: Bilirubin, Total 0.7 mg/dL (0.2-1.0); Phosphorus 3.8 mg/dL (2.4-5.1); Total Protein 7.8 g/dL (5.7-8.2)
[2023-03-18] MEDS: ENOXAPARIN SOD 80 MG/0.8ML SYRINGE SC SCH (09:48)
[2023-03-18] MEDS: SODIUM CHLOR 0.9% PF (SALINE LOCK) 10ML VIAL/SYR IV SCH ×2 (09:48→22:43)
[2023-03-18] MEDS: FLUCONAZOLE 200MG/100ML 100 ML IV SCH (09:48)
[2023-03-18] MEDS ORDERED: FLUC200T PO (10:01)
[2023-03-18] MEDS ORDERED: LEVO500T91 PO (10:01)
[2023-03-18] MEDS: CEFTRIAXONE SODIUM 2 GM in D5W 5% 100 ML IV SCH (12:23)
[2023-03-18] MEDS ORDERED: CLINIMIX PER PHARMACY 0 ML IV SCH (19:00)
[2023-03-18] MEDS ORDERED: AMINO ACID INFUSION IN D10W 1,000 ML IV NR (20:00)
[2023-03-18] MEDS ORDERED: TPN PER PHARMACY IV NR ×9 (20:00)
[2023-03-18] MEDS: ENOXAPARIN SOD 60 MG/0.6 ML SYRINGE SC SCH (22:43)
[2023-03-19] MEDS: SODIUM CHLORIDE 0.9% 1,000 ML IV SCH (01:46)
[2023-03-19 05:00] VITALS: BP 98/59; PULSE 79; RESP 18; TEMP 97.9; O2SAT 95
[2023-03-19 05:40] LABS: Alanine Aminotransferase 18 U/L (7-40); Albumin 3.2 g/dL (3.2-4.8); Alkaline Phosphatase 212 U/L (46-116); Anion Gap 8 (5-15); Aspartate Aminotransferase 50 U/L (13-40); BUN/Creatinine Ratio 17.5 (10.0-20.0); Blood Urea Nitrogen 7 mg/dL (9-23); Calcium 8.8 mg/dL (8.7-10.4); Carbon Dioxide 23 mmol/L (20-30); Chloride 94 mmol/L (98-107); Glucose 92 mg/dL (74-106); Magnesium 1.7 mg/dL (1.6-2.6); Sodium 125 mmol/L (136-145)
[2023-03-19 05:41] LABS: Bilirubin, Total 0.8 mg/dL (0.2-1.0); Phosphorus 3.6 mg/dL (2.4-5.1)
[2023-03-19] MEDS: InsuLIN REG 1unit/0.01ml Soln (100units/ml) SC SCH ×3 (06:00→12:00)
[2023-03-19] MEDS: MIDODRINE HCL 10 MG TAB PO SCH ×2 (06:00→12:36)
[2023-03-19] MEDS: ACCU-CHEK COMFORT CURVE STRIP VI SCH ×3 (06:11→12:00)
[2023-03-19 08:00] VITALS: PULSE 78
[2023-03-19 08:05] VITALS: RESP 10; O2SAT 96
[2023-03-19 09:00] VITALS: BP 96/61; PULSE 78; RESP 16; TEMP 98; O2SAT 99
[2023-03-19] MEDS: SODIUM CHLOR 0.9% PF (SALINE LOCK) 10ML VIAL/SYR IV SCH (10:57)
[2023-03-19] MEDS: FLUCONAZOLE 200MG/100ML 100 ML IV SCH (10:57)
[2023-03-19] MEDS: ENOXAPARIN SOD 60 MG/0.6 ML SYRINGE SC SCH (10:57)
[2023-03-19] MEDS: CEFTRIAXONE SODIUM 2 GM in D5W 5% 100 ML IV SCH (12:32)
[2023-03-19 13:00] VITALS: BP 99/68; PULSE 78; RESP 16; TEMP 97.9; O2SAT 97
[2023-03-19] MEDS: MAGNESIUM SULFATE 1GM/100ML 100 ML IV SCH ×2 (14:38→16:03)
[2023-03-19 16:55] VITALS: BP 99/68; PULSE 83; RESP 17; TEMP 97.8; O2SAT 100
[2023-03-19] MEDS ORDERED: AMINO ACID INFUSION IN D10W 1,000 ML IV NR (20:00)
== END 2023-03-19 17:30 | disposition home health service (06) | DRG 720 ==
LOC: EDBD 17:04 → ER 17:04 → TELE 20:47 → DOU IN ICU 03-12 01:10 → TELE-EAST 03-14 17:15
PROVIDERS: ADMIT Nurse Practitioner; ATTEND Nurse Practitioner Acute Care
PROC: 30233N1 Transfusion of Nonautologous Red Blood Cells into Peripheral Vein, Percutaneous Approach (ICD-10-PCS; principal; 2023-03-12)
PROC: 02HV33Z Insertion of Infusion Device into Superior Vena Cava, Percutaneous Approach (ICD-10-PCS; 2023-03-17)
PROC: B548ZZA Ultrasonography of Superior Vena Cava, Guidance (ICD-10-PCS; 2023-03-17)
DX: A41.1 Sepsis due to other specified staphylococcus (principal); E43 Unspecified severe protein-calorie malnutrition; E87.0 Hyperosmolality and hypernatremia; N13.8 Other obstructive and reflux uropathy; E87.1 Hypo-osmolality and hyponatremia; B37.9 Candidiasis, unspecified; D64.9 Anemia, unspecified; N30.90 Cystitis, unspecified without hematuria; G89.4 Chronic pain syndrome; N40.1 Benign prostatic hyperplasia with lower urinary tract symptoms; Z93.3 Colostomy status; Z93.6 Other artificial openings of urinary tract status; Z68.1 Body mass index [BMI] 19.9 or less, adult; Z92.3 Personal history of irradiation; Z86.718 Personal history of other venous thrombosis and embolism; Z85.038 Personal history of other malignant neoplasm of large intestine
CPT/HCPCS: 36415; 36569; 71045; 74176; 80053; 80202; 81001; 82553; 82962; 83605; 83735; 83930; 84100; 84478; 84484; 85025; 85610; 85730; 86850; 86900; 86901; 86920; 87040; 87070; 87077; 87081; 87086; 87186; 87205; 93005; 96361; 96365; 96368; G0378; J0696; J1450; J2185; J2543; J7060; J7131

== ENCOUNTER 2023-04-24 20:27 | Emergency (ER) | payer MEDICAID ==
[~2023-04-24] VITALS: Ht 172.7 cm; Wt 55.0 kg
[~2023-04-24 20:27] MED LIST changes: +FLUC200T PO; +LEVO500T91 PO
[2023-04-24 21:00] VITALS: BP 100/56; PULSE 111; RESP 16; TEMP 98.3
[2023-04-24 21:40] VITALS: O2SAT 95
== END 2023-04-24 23:34 | disposition left against medical advice (07) ==
LOC: EDBD 20:27 → ER 20:27
DX: T83.012A Breakdown (mechanical) of nephrostomy catheter, initial encounter (principal); Z79.899 Other long term (current) drug therapy; Z79.2 Long term (current) use of antibiotics